=== PATIENT | female | born 1930 | race Caucasian/White ===

== ENCOUNTER 2020-03-11 15:03 | Emergency (ER) | payer MEDICARE, OTHER ==
--- NOTE | 2020-03-11 16:01 | RAD ---
RIGHT HAND THREE VIEWS: 03/11/20 HISTORY: Injury. Right hand pain. FINDINGS/IMPRESSION: Degenerative changes are present. There are lucencies in the base of the fifth metacarpal, suspicious for fracture. Clinical correlatio n is recommended. POS: OFF
[2020-03-11] MEDS ORDERED: Bacitracin 1 PK ONE (16:20)
[2020-03-11] MEDS ORDERED: Adacel (T-DAP) 0.5 ML SYRINGE ONE (16:27)
== END 2020-03-11 16:41 | disposition home or self-care (01) ==
LOC: MADERS 15:03
DX: S62.316A Displaced fracture of base of fifth metacarpal bone, right hand, initial encounter for closed fracture (principal); Z23 Encounter for immunization; W17.89XA Other fall from one level to another, initial encounter
CPT/HCPCS: 29125; 90471; 90715